=== PATIENT | male | born 1995 | race Caucasian/White ===

== ENCOUNTER 2017-10-05 21:58 | Emergency (ER) | payer OTHER ==
[2017-10-05 22:18] VITALS: BP 148/87
[2017-10-05] MEDS ORDERED: KETOROLAC TROMETHAMINE INJ/PF 30 MG/1 ML SDV IM ONE (23:44)
[2017-10-05] MEDS ORDERED: DEXAMETHASONE SOD PHOS INJ 10 MG/1 ML VIAL IM ONE (23:44)
[2017-10-05] MEDS ORDERED: LIDOCAINE 5% (700 MG) TRANSDERMAL ADH..PATCH TP ONE (23:44)
--- NOTE | 2017-10-05 23:52 | ER Document Report ---
HPI - HPI Pain Level: 5 Notes: Patient is a 22-year-old male with a history of chronic back pain who presents to the ED complaining of acute on chronic back pain since bending over to lift something up about 10 hours ago. Patient states that the pain is primarily near his midline from his L1-L5 area. The pain does not radiate. Patient states that truncal movements make the pain worse. He has taken to 5 mg Percocets with minimal relief. He is otherwise eating and drinking without any difficulties. He is urinating normally and having normal bowel movements. He has not had any injections or procedures to his back. Denies any previous history of spinal abscess. Denies any drug allergies. No other significant past medical history. Patient states that he is being evaluated by the [facility] clinic and states that they are working on scheduling for imaging. Denies any headache, fever, URI, sore throat, chest pain, palpitations, syncope, cough, shortness of breath, wheeze, dyspnea, abdominal pain, nausea/vomiting/diarrhea, urinary retention, dysuria, hematuria, loss of control of bowel or bladder, numbness/tingling, saddle anesthesia, muscle paralysis/weakness, or rash. - ROS Systems Reviewed and Negative: Yes All other systems reviewed and negative <BUFFY RANDOLPH - Last Filed: 10/06/17 14:10> Past Medical History - Social History Smoking Status: Never Smoker Family History: Reviewed & Not Pertinent <BUFFY RANDOLPH - Last Filed: 10/06/17 14:10> Vertical Provider Document - CONSTITUTIONAL Agree With Documented VS: Yes Notes: PHYSICAL EXAMINATION: GENERAL: Well-appearing, well-nourished and in no acute distress. LUNGS: Breath sounds clear to auscultation bilaterally and equal. No wheezes rales or rhonchi. HEART: Regular rate and rhythm without murmurs, rubs, gallops. ABDOMEN: Soft, nontender, nondistended abdomen. No guarding, no rebound. No masses appreciated. Normal bowel sounds present. No CVA tenderness bilaterally. No pulsatile mass Musculoskeletal: LE's b/l: FROM to passive/active. Strength 5+/5. No deficits noted. No bony tenderness of extremities. Back: LROM to passive/active of flexion/extension due to discomfort. Strength 5+/5. No erythema, swelling, or ecchymosis. SLR negative b/l. + tenderness to the L-paraspinal mm b/l and to the midline near L4-5 and L1-2. + tenderness with percussion as well to those areas specifically. No SI jt tenderness. No foot drop. Extremities: No cyanosis, clubbing, or edema b/l. Peripheral pulses 2+. Capillary refill less than 2 seconds. NEUROLOGICAL: Normal speech, normal gait. Normal sensory, motor exams. Reflexes 2+ b/l. PSYCH: Normal mood, normal affect. SKIN: Warm, Dry, normal turgor, no rashes or lesions noted. <BUFFY RANDOLPH - Last Filed: 10/06/17 14:10> Course - Re-evaluation Re-evalutation: 10/06/17 03:[address] Adam Smith, neurosurgery at [facility] who recommends that patient stay our facility and have MRI done this morning. No further recommendations as far as treatment in the meanwhile. Will continue to provide pain management to patient. Bedside report that was done with Taylor Randolph PA-C. Patient sitting upright in room 21 with his , appears nontoxic. Patient is up-to-date on plan of care and has no questions. 10/06/17 03:48 Patient called out stating that he no longer wishes to stay here and wait for his MRI. Patient is requesting an outpatient slip for MRI. Discussed the risks of patient going home to include worsening of his condition to include life threatening conditions such as epidural abscess or sepsis. Patient also informed that he will need to call this morning to attempt to schedule his MRI however due to the fact that this will now be an outpatient water they may likely need to get preauthorization through his insurance company. Patient wishes to be discharged from the emergency department despite these facts. Will provided outpatient lab slip and provide return precautions. - Vital Signs Vital signs: Temp Pulse Resp BP Pulse Ox 98.5 F 84 20 148/87 H 98 10/05/17 22:16 10/05/17 22:16 10/05/17 22:16 10/05/17 22:16 10/05/17 22:16 - Laboratory Result Diagrams: 10/06/17 01:45 10/06/17 01:45 Laboratory results interpreted by me: 10/06/17 10/06/17 01:45 01:45 RBC 5.72 H Sodium 147.2 H <FAUSTINA ESPINOZA - Last Filed: 10/06/17 03:53> - Re-evaluation Re-evalutation: 10/06/17 01:15 I did speak with the radiologist concerning pt's L-spine XR and seeing erosive changes to L5-S1 area. Pt does have percussive tenderness to that area and near L1-2. Pt is otherwise non-toxic appearing with acceptable vitals. No significant tachycardia, tachypnea, or hypoxia. He is tolerating PO w/o any difficulties. Labs ordered 10/06/17 02:[address] smart- no MRI until morning. Called da to speak with a neurosurgeon for consult regarding patient and am awaiting a call back. 10/06/17 02:43 Still no call from [facility]. Reviewed case with Lisandra Espinoza CLIENT DEVELOPMENT MANAGER who will take over care at this time. Reviewed case with patient who is in agreement with plan thus far. - Vital Signs Vital signs: Temp Pulse Resp BP Pulse Ox 98.5 F 84 20 148/87 H 98 10/05/17 22:16 10/05/17 22:16 10/05/17 22:16 10/05/17 22:16 10/05/17 22:16 - Laboratory Result Diagrams: 10/06/17 01:45 10/06/17 01:45 <BUFFY RANDOLPH - Last Filed: 10/06/17 14:10> Discharge <FAUSTINA ESPINOZA - Last Filed: 10/06/17 03:53> <BUFFY RANDOLPH - Last Filed: 10/06/17 14:10> - Discharge Clinical Impression: Low back pain Qualifiers: Chronicity: acute Back pain laterality: unspecified Sciatica presence: without sciatica Qualified Code(s): M54.5 - Low back pain Condition: Stable Disposition: HOME, SELF-CARE Instructions: Low Back Pain ([facility]), Muscle Relaxers ([facility]), Stretching Exercises for the Back ([facility]) Additional Instructions: You have been advised to stay and have the MRI done as an ER patient. You have chosen to leave and have the test done as an outpatient. Please call this morning to arrange for scheduling of MRI. Rest, Ice Tylenol/ibuprofen as needed Light stretches daily Strength exercises as able Moist heat and massage may help F/u with your PCP in 3-5 days for a recheck Consider consult(s) with Orthopedics/physical therapy for ongoing/worsening symptoms Return to the ED with any worsening symptoms and/or development of FEVER, headache, chest pain, palpitations, syncope, shortness of breath, trouble breathing, abdominal pain, nausea, vomiting, diarrhea, blood in stool/urine, loss of control of bowel/bladder, urinary retention, muscle weakness/paralysis, saddle anesthesia, numbness/tingling, or other worsening symptoms that are concerning to you. Prescriptions: Baclofen [Baclofen 10 mg Tablet] 5 - 10 mg PO BID PRN #10 tablet PRN Reason: Naproxen 500 mg PO BID PRN #30 tablet PRN Reason: Forms: Elevated Blood Pressure, Follow-Up Radiology Testing Referrals: [facility] [Provider Group] - Follow up in 3-5 days [facility] [Provider Group] - Follow up as needed
--- NOTE | 2017-10-06 00:59 | RADIOLOGY REPORT (SQ) ---
Lumbar Spine Clinical History: 22-year-old male with low back pain. Technique: Five views of the lumbar spine are submitted for review. Comparison: None. Findings: There is no evidence for acute fracture. The bone mineralization is within normal limits.. There are some erosive changes seen involving the disc space of L5-S1. This is age indeterminate.. Vertebral body heights are maintained. Normal lumbar lordosis is demonstrated. Impression: Erosive changes of L5-S1 which are age indeterminant. Please correlate with patient's point tenderness. MRI of the lumbar spine with and without IV contrast would help better delineate to exclude discitis in this 22 year old male. CRITICAL FINDINGS are communicated to Dr Hayes at 11:57pm [employer].
[2017-10-06] MEDS ORDERED: MORPHINE SULFATE 10 MG/ML INJ IV ONE ×2 (01:29→02:32)
[2017-10-06 02:03] LABS: ABSOLUTE EOSINOPHILS # (AUTO) 0.1 10^3/uL (0.0-0.6); ABSOLUTE MONOCYTES (AUTO) 0.3 10^3/uL (0.1-1.4); ABSOLUTE NEUT (AUTO) 5.1 10^3/uL (1.7-8.2); BASOPHILS % (AUTO) 0.7 % (0-2); EOSINOPHILS % (AUTO) 1.3 % (0-6); HEMATOCRIT 45.7 % (37.9-51.0); HEMOGLOBIN 16.1 g/dL (13.5-17.0); LYMPHOCYTES % (AUTO) 25.9 % (13-45); MEAN CORPUSCULAR HEMOGLOBIN 28.1 pg (27.0-33.4); MEAN CORPUSCULAR HGB CONC 35.2 g/dL (32.0-36.0); MEAN CORPUSCULAR VOLUME 80 fl (80-97); MONOCYTES % (AUTO) 4.3 % (3-13); PLATELET COUNT 185 10^3/uL (150-450); RED BLOOD COUNT 5.72 10^6/uL (4.35-5.55); RED CELL DISTRIBUTION WIDTH 12.6 % (11.5-14.0); SEGMENTED NEUTROPHILS % (AUTO) 67.8 % (42-78); TOTAL CELLS COUNTED % (AUTO) 100 %; WHITE BLOOD COUNT 7.5 10^3/uL (4.0-10.5)
[2017-10-06 02:13] LABS: ALANINE AMINOTRANSFERASE 33 U/L (21-72); ALBUMIN 4.7 g/dL (3.5-5.0); ALKALINE PHOSPHATASE 55 U/L (38-126); ANION GAP 12 (5-19); ASPARTATE AMINO TRANSFERASE 23 U/L (17-59); BILIRUBIN,DIRECT 0.3 mg/dL (0.0-0.4); BILIRUBIN,TOTAL 0.6 mg/dL (0.2-1.3); BLOOD UREA NITROGEN 16 mg/dL (7-20); C-REACTIVE PROTEIN < 5.0 mg/L (<10.0); CALCIUM 10.2 mg/dL (8.4-10.2); CARBON DIOXIDE 29 mmol/L (22-30); CHLORIDE 106 mmol/L (98-107); GLUCOSE 91 mg/dL (75-110); POTASSIUM 4.6 mmol/L (3.6-5.0); SODIUM 147.2 mmol/L (137-145); TOTAL PROTEIN 7.8 g/dL (6.3-8.2)
[2017-10-06 03:19] LABS: AMORPHOUS SEDIMENT,URINE TRACE /HPF; APPEARANCE,URINE SLIGHTLY-CLOUDY; BILIRUBIN,URINE NEGATIVE (NEGATIVE); COLOR,URINE YELLOW; GLUCOSE, URINE NEGATIVE (NEGATIVE); KETONES,URINE NEGATIVE (NEGATIVE); LEUKOCYTE ESTERASE,URINE NEGATIVE (NEGATIVE); NITRITE,URINE NEGATIVE (NEGATIVE); PROTEIN,URINE NEGATIVE (NEGATIVE); URINE SPECIFIC GRAVITY 1.028; UROBILINOGEN,URINE NEGATIVE mg/dL (<2.0)
[2017-10-06 03:20] LABS: ERYTHROCYTE SEDIMENTATION RATE 1 mm/hr (0-15)
== END 2017-10-06 04:09 | disposition home or self-care (01) ==
LOC: ER 21:58
DX: M54.5 Low back pain (principal); G89.29 Other chronic pain; M54.9 Dorsalgia, unspecified
CPT/HCPCS: 96376; 99283; 96372; 96374; 36415; 87040; 87086; 85025; 85652; 86140; 80053; 81001; 72110; J1885; J2270; J1100

== ENCOUNTER 2017-10-07 15:55 | Emergency (ER) | payer OTHER ==
[2017-10-07] MEDS ORDERED: OXYCODONE-ACETAMINOPHEN 5-325 MG TABLET PO ONE (16:34)
[2017-10-07] MEDS ORDERED: CYCLOBENZAPRINE HCL 10 MG TABLET PO ONE (16:35)
--- NOTE | 2017-10-07 16:35 | ER Document Report ---
ED Neck/Back Problem - General Chief Complaint: Back Pain Stated Complaint: BACK PAIN Time Seen by Provider: 10/07/17 16:21 Mode of Arrival: Ambulatory Information source: Patient Notes: Patient is a 22-year-old male who presents to the ER today for low back pain that has been going on for years but worsened 3 days ago when he bent to pick something out of the vending machine and had immediate sharp pain to the low back. Patient states that it took approximately 10 minutes for him to stand back up again. Patient has never been diagnosed with anything to the low back except for degenerative disc disease. He was in the . Patient denies any numbness or tingling anywhere, denies loss of bladder or bowel function. He states the sharp pain radiates up and down his spine. - Related Data Allergies/Adverse Reactions: No Known Allergies Allergy (Unverified 10/05/17 22:10) Past Medical History - General Information source: Patient - Social History Smoking Status: Former Smoker Family History: Reviewed & Not Pertinent Renal/ Medical History: Denies: Hx Peritoneal Dialysis Review of Systems - Review of Systems Constitutional: No symptoms reported EENT: No symptoms reported Cardiovascular: No symptoms reported Respiratory: No symptoms reported Gastrointestinal: No symptoms reported Genitourinary: No symptoms reported Male Genitourinary: No symptoms reported Musculoskeletal: See HPI Skin: No symptoms reported Hematologic/Lymphatic: No symptoms reported Neurological/Psychological: No symptoms reported Physical Exam - Vital signs Vitals: Temp Pulse Resp BP Pulse Ox 98.8 F 97 20 145/86 H 99 10/07/17 16:15 10/07/17 16:15 10/07/17 16:15 10/07/17 16:15 10/07/17 16:15 - Notes Notes: PHYSICAL EXAMINATION: GENERAL: Well-appearing and in no acute distress. HEAD: Atraumatic, normocephalic. EYES: Pupils equal round and reactive to light, extraocular movements intact, sclera anicteric, conjunctiva are normal. NECK: Normal range of motion, supple without lymphadenopathy LUNGS: CTAB and equal. No wheezes rales or rhonchi. HEART: Regular rate and rhythm without murmurs ABDOMEN: Soft, no tenderness. No guarding, no rebound BACK: lumbar vertebral tenderness, decreased range of motion secondary to pain Rectal: Normal tone GI/: no CVA tenderness EXTREMITIES: Normal range of motion, no pitting edema. No cyanosis. NEUROLOGICAL: Cranial nerves grossly intact. Normal sensory/motor exams. PSYCH: Normal mood, normal affect. SKIN: Warm, Dry, normal turgor, no rashes or lesions noted Course - Re-evaluation Re-evalutation: 10/08/17 01:14 Patient was seen here 2 days ago for the same symptoms and neurosurgery advised and was consulted, advised MRI at that time. Patient had no neurological deficits then either, but MRI was ordered and patient did not wait on that MRI as we did not have until morning and he was in the ER overnight. Patient is back today stating "I know you have MRI because I called before I came [facility]. " MRI was performed and reveals a 5 mm central disc protrusion at L4-L5, no other acute pathology. Patient continues to tell me that none of the pain medication that I order here in the emergency department work for him. I initially ordered Percocet and Flexeril, asking him if he had ever been on chronic pain medication to which she said no, but then once he found out that I had ordered Percocet and Flexeril he stated "I can tell you right now that those are not going to work for me." Then he stated that morphine also does not work for him. Patient stated when I went back into the room to ask them if the oral Dilaudid I have given him here in the emergency department had helped, that it "did not really feel like it." However, patient looks much more relaxed and is texting on the phone, will even look up at me because he is texting. I did speak with neurosurgery on-call at [facility] and again [facility], I let them know about the MRI results, they advise sending him home with pain medication and giving him a steroid here as well as sending him home on a course of steroids, having him follow-up with them although they state that there does not appear to be any neurosurgical emergency at this time. I do agree with this as he has no neurologic deficits today. Once I asked patient again if the Dilaudid helped him prior to discharge he states "yeah that is the only thing that has actually helped me." I will send patient home with just a few of these, but did advise that he very likely needs to follow-up with neurosurgery or even pain management, I have given him the phone number for pain management today. I have advised him that he will receive no further narcotics from the emergency department. - Vital Signs Vital signs: Temp Pulse Resp BP Pulse Ox 97.8 F 82 16 140/78 H 98 10/07/17 18:31 10/07/17 18:31 10/07/17 18:31 10/07/17 18:31 10/07/17 18:31 Discharge - Discharge Clinical Impression: Protrusion of lumbar intervertebral disc Low back pain Qualifiers: Chronicity: acute Back pain laterality: unspecified Sciatica presence: with sciatica Sciatica laterality: bilateral sciatica Qualified Code(s): M54.42 - Lumbago with sciatica, left side Condition: Stable Disposition: HOME, SELF-CARE Additional Instructions: Return immediately for any new or worsening symptoms. Follow up with primary care provider, call tomorrow to make followup appointment. You can call to make an appointment with the neurosurgeon, however at this time it does not look like there is any neurosurgical emergency. If still having pain at 6 weeks, please make an appointment with pain management that I have provided you below. [facility] [place] [address] Prescriptions: Hydromorphone HCl 2 mg PO Q4 PRN #10 tablet PRN Reason: Methylprednisolone [Medrol Dosepack (4 mg/Tab) 21 Tab/Dosepak] 4 mg PO ASDIR PRN #21 tab.ds.pk PRN Reason: Referrals: YAYA WOODALL MD [ACTIVE STAFF] - Follow up as needed [facility] [Provider Group] - Follow up as needed
[2017-10-07] MEDS ORDERED: HYDROMORPHONE HCL 2 MG TABLET PO ONE (16:38)
--- NOTE | 2017-10-07 17:40 | RADIOLOGY REPORT (SQ) ---
EXAM DESCRIPTION: MRI LUMBAR SPINE WITHOUT COMPLETED DATE/TIME: 10/07/2017 5:22 pm REASON FOR STUDY: back injury, pain COMPARISON: None. TECHNIQUE: Sagittal and Axial imaging includes T1, T2, STIR and gradient echo sequences. Coronal T2/ HASTE imaging. LIMITATIONS: None. FINDINGS: VISUALIZED UPPER ABDOMEN: Limited evaluation. No acute or suspicious findings suggested. SEGMENTATION: No transitional anatomy. The lowest well-developed disc space is labeled L5-S1. ALIGNMENT: Anatomic. VERTEBRAE: Intact. BONE MARROW: Normal. No marrow replacement or reactive changes. DISC SIGNAL: 5 mm central disc protrusion at the L4-5 level. Mild global disc bulging at the L5-S1 l evel. Mild disc desiccation at the L4-5 and L5-S1 levels. No significant disc height loss. POSTERIOR ELEMENTS: Bilateral L5 pars interarticularis defects. HARDWARE: None in the spine. CORD AND CONUS: Normal in size and signal intensity. Conus at the appropriate level. SOFT TISSUES: No aortic aneurysm seen. No bulky retroperitoneal adenopathy or mass. No paraspinal mas s or fluid. L1-L2: No significant spinal stenosis or exit foraminal stenosis. L2-L3: No significant spinal stenosis or exit foraminal stenosis. L3-L4: No significant spinal stenosis or exit foraminal stenosis. L4-L5: No significant spinal stenosis or exit foraminal stenosis. L5-S1: No significant spinal stenosis or exit foraminal stenosis. LOWER THORACIC: Incompletely imaged. No stenosis seen. SACRUM: Visualized upper sacrum intact. OTHER: No other significant findings. IMPRESSION: 5 mm central disc protrusion at the L4-5 level. No significant spinal stenosis or exit f oraminal stenosis. The no fracture or marrow edema. TECHNICAL DOCUMENTATION: JOB ID: [id number] [id number] 2010 [employer]- All Rights Reserved Reading location - IP/workstation name: [employer] for iPhone and Android
[2017-10-07] MEDS ORDERED: DEXAMETHASONE SOD PHOS INJ 10 MG/1 ML VIAL IM ONE (17:47)
[2017-10-07 18:33] VITALS: BP 140/78
== END 2017-10-07 18:31 | disposition home or self-care (01) ==
LOC: ER 15:55
DX: M51.16 Intervertebral disc disorders with radiculopathy, lumbar region (principal); Z87.891 Personal history of nicotine dependence
CPT/HCPCS: 99284; 96372; 72148; J1100